=== PATIENT | male | born 1960 | race Caucasian/White ===

== ENCOUNTER 2021-08-17 04:11 | Emergency (ER) | payer OTHER, MEDICAID ==
[~2021-08-17] VITALS: Ht 165.1 cm; Wt 72.7 kg
[2021-08-17 04:20] VITALS: BP 156/95
[2021-08-17] MEDS ORDERED: HYDR-4069 PO (04:25)
== END 2021-08-17 05:30 | disposition left against medical advice (07) ==
LOC: EMS 04:15
DX: G89.18 Other acute postprocedural pain (principal); Z53.21 Procedure and treatment not carried out due to patient leaving prior to being seen by health care provider